=== PATIENT | male | born 1945 | race Caucasian/White ===

== ENCOUNTER 2017-08-17 11:22 | Outpatient (CLI) | payer MEDICARE, OTHER ==
[~2017-08-17 11:22] MED LIST: IOPAMIDOL-300 100 ML VIAL ONE; IOPAMIDOL-300 50 ML VIAL ONE
[2017-08-17] MEDS ORDERED: IOPAMIDOL-300 50 ML VIAL PO ONE (13:04)
[2017-08-17] MEDS ORDERED: IOPAMIDOL-300 100 ML VIAL IVP ONE (13:04)
--- NOTE | 2017-08-17 17:47 | CT Report ---
DATE OF SERVICE: 08/17/2017 CT OF THE ABDOMEN AND PELVIS WITH CONTRAST: 08/17/2017 CLINICAL INDICATION: Abdominal pain. TECHNIQUE: Axial CT images of the abdomen and pelvis were obtained with 100 mL Isovue 300 intravenously as well as oral contrast. No previous CT is available for comparison. FINDINGS: Limited evaluation of the lung bases demonstrates mild atelectasis. ABDOMEN: The liver demonstrates diffuse decrease in attenuation, compatible with fatty infiltration. No focal liver lesion is seen. The spleen, pancreas and adrenal glands are unremarkable. The kidneys demonstrate cortical cysts, but no evidence of hydronephrosis or nephrolithiasis. The gallbladder is not dilated. No bowel dilatation, free gas, or free fluid is present. No abdominal adenopathy is seen. 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 PELVIS: The appendix is seen in the right lower quadrant, and is normal in caliber. A few sigmoid diverticula are present, without CT evidence of diverticulitis. No pelvic adenopathy or free fluid is present. Osseous structures demonstrate degenerative changes. IMPRESSION: FATTY INFILTRATION OF THE LIVER. NO EVIDENT ETIOLOGY FOR PATIENT'S ABDOMINAL PAIN. In accordance with CT protocol optimization, one or more of the following dose reduction techniques were utilized for this exam: automated exposure control, adjustment of mA and/or KV based on patient size, or use of iterative reconstructive technique. TD: 08/17/2017 18:46
== END 2017-08-17 11:23 | disposition home or self-care (01) ==
LOC: DI 11:22
PROVIDERS: ATTEND Family Medicine
DX: R10.9 Unspecified abdominal pain (principal); K76.0 Fatty (change of) liver, not elsewhere classified
CPT/HCPCS: 74177; Q9967

== ENCOUNTER 2017-09-13 12:57 | Day surgery (SDC) | payer MEDICARE, OTHER ==
[2017-09-13] MEDS ORDERED: LACTATED RINGERS 1,000 ML IV ONE (13:12)
[2017-09-13] MEDS ORDERED: fentaNYL 100 MCG/2 ML VIAL IVP ONE (14:45)
[2017-09-13] MEDS ORDERED: MIDAZOLAM 2 MG/2 ML VIAL IVP ONE (14:45)
[2017-09-13 15:32] VITALS: BP 105/54
== END 2017-09-13 12:58 | disposition home or self-care (01) ==
LOC: SDS 12:57
PROVIDERS: ATTEND Surgery
PROC: 0DJD8ZZ Inspection of Lower Intestinal Tract, Via Natural or Artificial Opening Endoscopic (ICD-10-PCS; principal; 2017-09-13 14:45)
DX: R19.5 Other fecal abnormalities (principal); R10.9 Unspecified abdominal pain; K57.30 Diverticulosis of large intestine without perforation or abscess without bleeding; K64.4 Residual hemorrhoidal skin tags; K64.8 Other hemorrhoids; I10 Essential (primary) hypertension; E78.5 Hyperlipidemia, unspecified; E03.9 Hypothyroidism, unspecified; E05.00 Thyrotoxicosis with diffuse goiter without thyrotoxic crisis or storm; I48.91 Unspecified atrial fibrillation; Z95.0 Presence of cardiac pacemaker
CPT/HCPCS: 45378; J7120

== ENCOUNTER 2018-12-27 20:40 | Emergency (ER) | payer MEDICARE, OTHER ==
[2018-12-27 20:49] VITALS: BP 147/94
--- NOTE | 2018-12-27 21:19 | XRAY Report ---
Reason: cough Procedure Date: 12/27/2018 Accession Number: [id number] / [id number] Procedure: XR - Chest 2 View X-Ray CPT Code: 43923 FULL RESULT: EXAM: CHEST RADIOGRAPHY EXAM DATE: 12/27/2018 08:56 PM. CLINICAL HISTORY: Cough. COMPARISON: 10/05/2015 3:27 PM. TECHNIQUE: 2 views. FINDINGS: Lungs/Pleura: Mildly increased interstitial prominence especially in the left base. Minimal peribronchial cuffing. No consolidation, effusion, or pneumothorax. Mediastinum: Heart and mediastinal contours are unremarkable. Other: Permanent pacemaker on the right with intact leads. Degenerative changes. IMPRESSION: Interstitial infiltrates, most likely viral or mycoplasmal. RADIA
--- NOTE | 2018-12-27 21:21 | ED Physician Documentation ---
PD HPI URI - Stated complaint Stated Complaint: COUGH/FEVER - Chief complaint Chief Complaint: Resp - History obtained from History obtained from: Patient - History of Present Illness Timing - onset: How many weeks ago (2 1/2 - 3) Timing duration: Weeks Timing details: Gradual onset, Still present Associated symptoms: Chills, Nasal congestion, Sinus pain, Dry cough, Dyspnea (barking cough, trouble sleeping due to cough. No wheezing per se. Had been down to [place] by plane and the symptoms started few days later while there. Seen in Walk In and told had viral illness without Rx given. Continues to have cough and trouble sleeping.). No: Fever, Sore throat Contributing factors: Travel (to [place]) Similar symptoms before: No diagnosis (he says he gets ill like this yearly, typically after traveling to [place]. Usually Rx with abx and sometimes inhaler.) Review of Systems Constitutional: reports: Chills, Myalgias, Fatigue. denies: Fever Nose: reports: Congestion, Sinus pressure / pain. denies: Rhinorrhea / runny nose Throat: reports: Sore throat Cardiac: denies: Chest pain / pressure, Palpitations Respiratory: reports: Cough. denies: Dyspnea GI: denies: Vomiting, Diarrhea Skin: denies: Rash Neurologic: denies: Headache Psychiatric: reports: Insomnia (due to congestion and persistent cough, worsens when lying flat.) PD PAST MEDICAL HISTORY - Past Medical History Past Medical History: Yes Cardiovascular: Hypertension, High cholesterol, Atrial fibrillation Respiratory: Sleep apnea Neuro: None Endocrine/Autoimmune: HyPOthyroidism GI: None : None HEENT: None Psych: Depression, Obsessive compulsive disorder Musculoskeletal: Gout Derm: None - Past Surgical History Past Surgical History: Yes General: Colonoscopy Ortho: Carpal Tunnel surgery Cardiovascular: Pacemaker HEENT: Cataracts - Present Medications Home Medications: Ambulatory Orders Medication Instructions Recorded Confirmed Allopurinol 200 mg PO DAILY 07/28/15 09/13/17 FLUoxetine [PROzac] 20 mg PO DAILY 07/28/15 09/13/17 Lisinopril 20 mg PO DAILY 07/28/15 09/13/17 Levothyroxine Sodium 1 tab PO DAILY 11/07/15 09/13/17 Aspirin 325 mg PO DAILY 09/13/17 09/13/17 Clobetasol Propionate/Emoll 15 gm TP 09/13/17 [Clobetasol Emollient 0.05% Crm] Pravastatin [Pravachol] 10 mg PO DAILY 09/13/17 09/13/17 Albuterol Sulf [Ventolin Hfa 1 - 2 puffs INH Q4HR PRN #1 inhaler 12/27/18 Inhaler] Benzonatate [Tessalon Perle] 100 - 200 mg PO TID PRN #30 capsule 12/27/18 Doxycycline Hyclate 100 mg PO BID #20 capsule 12/27/18 dexAMETHasone [Decadron] 4 mg PO DAILY #5 tablet 12/27/18 - Allergies Allergies/Adverse Reactions: Allergies Allergy/AdvReac Type Severity Reaction Status Date / Time No Known Drug Allergies Allergy Verified 12/27/18 20:46 - Social History Does the pt smoke?: No Smoking Status: Never smoker Does the pt drink ETOH?: No Does the pt have substance abuse?: No - Immunizations Immunizations are current?: Yes - POLST Patient has POLST: No PD ED PE NORMAL - Vitals Vital signs reviewed: Yes - General General: Alert and oriented X 3, No acute distress, Well developed/nourished - HEENT HEENT: Pharynx benign - Neck Neck: Supple, no meningeal sign, No adenopathy - Cardiac Cardiac: RRR, No murmur - Respiratory Respiratory: Clear bilaterally, Other (has deep, croupy sounding cough frequently. Normal voice. ) - Abdomen Abdomen: Soft, Non tender Results - Vitals Vitals: Vital Signs - 24 hr 12/27/18 12/27/18 12/27/18 20:42 21:22 21:55 Temperature 37.1 C Heart Rate 88 90 Respiratory 24 17 20 Rate Blood Pressure 147/94 H O2 Saturation 96 12/27/18 22:20 Temperature Heart Rate Respiratory 17 Rate Blood Pressure O2 Saturation Oxygen O2 Source Room air - Rads (name of study) chest xray Radiology: Prelim report reviewed (mild interstitial infiltrates. Consider Mycoplasma.), EMP read contemporaneously, See rad report PD MEDICAL DECISION MAKING - ED course Complexity details: re-evaluated patient, considered differential, d/w patient Departure - Departure Disposition: 01 Home, Self Care Clinical Impression: Upper respiratory infection Qualifiers: URI type: unspecified URI Qualified Code(s): J06.9 - Acute upper respiratory infection, unspecified Condition: Stable Record reviewed to determine appropriate education?: Yes Instructions: ED Upper Resp Infec Abx Tx Follow-Up: Amy Low MD [Primary Care Provider] - Prescriptions: Albuterol Sulf [Ventolin Hfa Inhaler] 1 - 2 puffs INH Q4HR PRN #1 inhaler PRN Reason: Shortness Of Air/Wheezing Benzonatate [Tessalon Perle] 100 - 200 mg PO TID PRN #30 capsule PRN Reason: Cough dexAMETHasone [Decadron] 4 mg PO DAILY #5 tablet Doxycycline Hyclate 100 mg PO BID #20 capsule Comments: Use albuterol inhaler 2 to 3 puffs 4 times a day for the next 7 to 10 days. Decadron steroid for inflammation of the airways to reduce the coughing. Tessalon as needed for cough suppression. Doxycycline antibiotic twice daily as directed. Recheck if not improving over the next few days. Discharge Date/Time: 12/27/18 22:23
[2018-12-27] MEDS ORDERED: DEXAMETHASONE 10 MG/ML VIAL PO STA (21:43)
[2018-12-27] MEDS ORDERED: CHERRY SYRUP 10 ML UDC PO ONE (21:43)
[2018-12-27] MEDS ORDERED: DOXYCYCLINE 100 MG TABLET PO STA (21:43)
[2018-12-27] MEDS ORDERED: BENZONATATE 100 MG CAPSULE PO STA (21:43)
[2018-12-27] MEDS ORDERED: ALBUTEROL NEB 2.5 MG/3 ML INH STA (21:43)
== END 2018-12-27 22:23 | disposition home or self-care (01) ==
LOC: ED 20:40
DX: J06.9 Acute upper respiratory infection, unspecified (principal); I10 Essential (primary) hypertension; Z79.82 Long term (current) use of aspirin
CPT/HCPCS: 71046; 94640; 94664; 99283; A9270